=== PATIENT | female | born 1955 | race Caucasian/White ===

== ENCOUNTER → 2018-07-04 | Outpatient (CLI) | payer OTHER ==
[~2018-07-04] MED LIST: ASPI81CH PO; DULO60 PO; LISI20 PO; LISINOPRIL 40MG PO; METF500 PO; MULVITMINF PO; PIOG30 PO; TRAM50 PO; VITAMIN C PO
== END | disposition home or self-care (01) ==
LOC: LAB EV 15:43 → LAB SHORT 15:43
DX: N39.0 Urinary tract infection, site not specified (principal)
CPT/HCPCS: 87077; 87086; 87186

== ENCOUNTER → 2018-07-21 | Outpatient (CLI) | payer OTHER | LOC: LAB SHORT 07:15 → PLD 07:15 | DX: D18.00 Hemangioma unspecified site (principal) | CPT/HCPCS: 88305 ==

== ENCOUNTER 2019-07-19 16:55 | Emergency (ER) | payer BC ==
[~2019-07-19] VITALS: Ht 170.2 cm; Wt 131.1 kg
[~2019-07-19 16:55] MED LIST changes: -ASPI81CH PO; +Aspirin EC81 MG PO
[2019-07-19] MEDS ORDERED: DILTIAZEM 24HR120 M2 (17:13)
[2019-07-19] MEDS ORDERED: LISI20 PO (17:22)
[2019-07-19] MEDS ORDERED: Dilt-Xr120 MG PO (17:22)
[2019-07-19] MEDS ORDERED: Celexa40 MG PO (17:23)
[2019-07-19] MEDS ORDERED: Pravachol40 MG PO (17:23)
[2019-07-19] MEDS ORDERED: B-121000 MC4 PO (17:24)
[2019-07-19 17:58] LABS: BASOPHILS ABSOLUTE AUTO 0.04 K/mm3 (0.00-0.23); BASOPHILS PERCENT AUTO 1 % (0-2); EOSINOPHILS ABSOLUTE AUTO 0.03 K/mm3 (0.00-0.68); EOSINOPHILS PERCENT AUTO 1 % (0-6); Hematocrit 38.7 % (33.0-51.0); Hemoglobin 12.5 g/dL (11.5-16.0); IMMATURE GRAN ABSOLUTE AUTO 0.03 K/mm3 (0.00-0.10); IMMATURE GRAN PERCENT AUTO 1 % (0-1); LYMPHOCYTES ABSOLUTE AUTO 0.49 K/mm3 (0.84-5.20); LYMPHOCYTES PERCENT AUTO 8 % (21-46); MONOCYTES ABSOLUTE AUTO 0.87 K/mm3 (0.16-1.47); MONOCYTES PERCENT AUTO 15 % (4-13); Mean Corpuscular HGB 29.6 pg (26.0-34.0); Mean Corpuscular HGB Conc 32.3 g/dL (31.5-36.5); Mean Corpuscular Volume 92 fL (80-100); NEUTROPHILS ABSOLUTE AUTO 4.51 K/mm3 (1.96-9.15); NEUTROPHILS PERCENT AUTO 76 % (41-73); Platelet Count 171 K/mm3 (150-400); RDW Coefficient Variation 14.6 % (11.7-14.2); RDW Standard Deviation 49.2 fL (35.1-46.3); Red Blood Cell Count 4.22 M/mm3 (3.80-5.20); White Blood Cell Count 5.97 K/mm3 (4.00-11.30)
[2019-07-19 18:19] LABS: Alanine Aminotransfer (ALT/SGP 86 U/L (12-78); Albumin, Blood 3.5 g/dL (3.4-5.0); Albumin/Globulin Ratio 0.9 (0.8-1.8); Alk Phos 87 U/L (50-136); Anion Gap 6 mmol/L (6-16); Aspartate Aminotrans (AST/SGOT 139 U/L (12-37); Bilirubin, Total 0.5 mg/dL (0.1-1.0); Blood Urea Nitrogen 13 mg/dL (8-24); Bun/Creatinine Ratio 25.3 (12.0-20.0); CO2, Blood 24 mmol/L (21-32); Chloride, Blood 105 mmol/L (98-108); Creatinine, Blood 0.51 mg/dL (0.40-1.00); Glomerular Filtration Rate >60 (60-); Glucose, Blood 151 mg/dL (70-99); Potassium, Blood 3.5 mmol/L (3.5-5.5); Sodium, Blood 135 mmol/L (136-145); Total Protein, Blood 7.5 g/dL (6.4-8.2); Troponin I <0.015 ng/mL (0.000-0.040)
[2019-07-19 18:24] LABS: Influenza A Positive (NEGATIVE); Influenza B Negative (NEGATIVE)
[2019-07-19] MEDS ORDERED: Tamiflu75 MG PO (18:39)
[2019-07-21] MEDS ORDERED: Prednisone20 MG PO (15:41)
[2019-07-21] MEDS ORDERED: GUAIFEN-CODEINE10 ML PO (15:41)
[2019-07-21] MEDS ORDERED: Zithromax250 MG PO (15:41)
== END 2019-07-19 18:51 | disposition home or self-care (01) ==
LOC: ER 16:55
PROVIDERS: Emergency Medicine; Physician Assistant
DX: J10.1 Influenza due to other identified influenza virus with other respiratory manifestations (principal); E11.9 Type 2 diabetes mellitus without complications; I10 Essential (primary) hypertension; E78.5 Hyperlipidemia, unspecified; Z79.899 Other long term (current) drug therapy; Z79.82 Long term (current) use of aspirin; Z79.84 Long term (current) use of oral hypoglycemic drugs
CPT/HCPCS: 71046; 80053; 84484; 85025; 87804; 93005; 93010; 99285-25

== ENCOUNTER 2021-01-25 18:01 | Emergency (ER) | payer OTHER, BC, MEDICARE ==
[~2021-01-25] VITALS: Ht 170.2 cm; Wt 126.5 kg
[~2021-01-25 18:01] MED LIST changes: +B-121000 MC4 PO; +Celexa40 MG PO; +DILTIAZEM 24HR120 M2; +Dilt-Xr120 MG PO; +GUAIFEN-CODEINE10 ML PO; +Pravachol40 MG PO; +Prednisone20 MG PO; +Tamiflu75 MG PO; +Zithromax250 MG PO
== END 2021-01-25 23:30 | disposition home or self-care (01) ==
LOC: ER 18:01
DX: S42.342A Displaced spiral fracture of shaft of humerus, left arm, initial encounter for closed fracture (principal); S51.811A Laceration without foreign body of right forearm, initial encounter; J45.909 Unspecified asthma, uncomplicated; E11.9 Type 2 diabetes mellitus without complications; I10 Essential (primary) hypertension; E78.5 Hyperlipidemia, unspecified; Z79.899 Other long term (current) drug therapy; Z79.82 Long term (current) use of aspirin; Z79.84 Long term (current) use of oral hypoglycemic drugs; W01.0XXA Fall on same level from slipping, tripping and stumbling without subsequent striking against object, initial encounter; Y99.0 Civilian activity done for income or pay
CPT/HCPCS: 12002; 73030; 73060; 96372-59; 99283-25; A9270; J1885

== ENCOUNTER → 2021-03-11 | Outpatient (CLI) | payer OTHER, BC, MEDICARE ==
[2021-03-11 12:25] LABS: BASOPHILS ABSOLUTE AUTO 0.03 K/mm3 (0.00-0.23); BASOPHILS PERCENT AUTO 1 % (0-2); EOSINOPHILS PERCENT AUTO 2 % (0-6); Hematocrit 34.4 % (33.0-51.0); IMMATURE GRAN ABSOLUTE AUTO 0.01 K/mm3 (0.00-0.10); IMMATURE GRAN PERCENT AUTO 0 % (0-1); LYMPHOCYTES ABSOLUTE AUTO 1.08 K/mm3 (0.84-5.20); LYMPHOCYTES PERCENT AUTO 23 % (21-46); MONOCYTES ABSOLUTE AUTO 0.79 K/mm3 (0.16-1.47); MONOCYTES PERCENT AUTO 17 % (4-13); Mean Corpuscular HGB 29.6 pg (26.0-34.0); Mean Corpuscular Volume 93 fL (80-100); Mean Platelet Volume 9.3 fL (9.1-12.4); NEUTROPHILS ABSOLUTE AUTO 2.64 K/mm3 (1.96-9.15); NEUTROPHILS PERCENT AUTO 57 % (41-73); Platelet Count 204 K/mm3 (150-400); RDW Standard Deviation 51.2 fL (35.1-46.3); Red Blood Cell Count 3.72 M/mm3 (3.80-5.20); White Blood Cell Count 4.65 K/mm3 (4.00-11.30)
[2021-03-11 12:40] LABS: Alanine Aminotransfer (ALT/SGP 40 U/L (12-78); Albumin, Blood 3.6 g/dL (3.4-5.0); Alk Phos 103 U/L (40-126); Anion Gap 9 mmol/L (6-16); Aspartate Aminotrans (AST/SGOT 39 U/L (12-37); Bilirubin, Total 0.4 mg/dL (0.1-1.0); Blood Urea Nitrogen 12 mg/dL (8-24); Bun/Creatinine Ratio 17.9 (12.0-20.0); CO2, Blood 28 mmol/L (21-32); Calcium, Blood 8.9 mg/dL (8.5-10.1); Chloride, Blood 102 mmol/L (98-108); Creatinine, Blood 0.67 mg/dL (0.40-1.00); Globulin, Blood 3.5 g/dL (2.2-4.0); Glomerular Filtration Rate >60 (60-); Glucose, Blood 113 mg/dL (70-99); Potassium, Blood 3.8 mmol/L (3.5-5.5); Sodium, Blood 139 mmol/L (136-145); Total Protein, Blood 7.1 g/dL (6.4-8.2)
== END | disposition home or self-care (01) ==
LOC: LAB SHORT 12:21
PROVIDERS: Family Medicine
DX: U07.1 COVID-19 (principal)
CPT/HCPCS: 80053; 85025; 85379; 86140

== ENCOUNTER 2022-06-03 11:54 | Day surgery (SDC) | payer BC, MEDICARE ==
[~2022-06-03] VITALS: Ht 170.2 cm; Wt 132.7 kg
[2022-06-03] MEDS ORDERED: OZEMPIC0.25 MG/0. (12:17)
[2022-06-03] MEDS ORDERED: TRAM50 (12:17)
[2022-06-03] MEDS ORDERED: Glipizide Xl2.5 MG (12:17)
[2022-06-03] MEDS ORDERED: PIOG15 (12:17)
[2022-06-03] MEDS ORDERED: Lisinopril2.5 MG (12:18)
[2022-06-03] MEDS ORDERED: FLUT1DIS5 (12:18)
== END 2022-06-03 14:43 | disposition home or self-care (01) ==
LOC: ORSCSDS 11:54
PROVIDERS: Internal Medicine Gastroenterology
PROC: 0DBE8ZX Excision of Large Intestine, Via Natural or Artificial Opening Endoscopic, Diagnostic (ICD-10-PCS; principal; 2022-06-03 13:00)
PROC: 0DB68ZX Excision of Stomach, Via Natural or Artificial Opening Endoscopic, Diagnostic (ICD-10-PCS; principal; 2022-06-03 13:00)
DX: R19.4 Change in bowel habit (principal); R11.2 Nausea with vomiting, unspecified; R10.84 Generalized abdominal pain; R11.0 Nausea; F41.9 Anxiety disorder, unspecified; J45.909 Unspecified asthma, uncomplicated; E11.9 Type 2 diabetes mellitus without complications; I10 Essential (primary) hypertension; G47.33 Obstructive sleep apnea (adult) (pediatric); E78.00 Pure hypercholesterolemia, unspecified; E55.9 Vitamin D deficiency, unspecified; K29.70 Gastritis, unspecified, without bleeding; R19.5 Other fecal abnormalities; E66.9 Obesity, unspecified; Z68.42 Body mass index [BMI] 45.0-49.9, adult; Z79.899 Other long term (current) drug therapy
CPT/HCPCS: 82947; 88305; 88342; A9270; J2704; J7120

== ENCOUNTER 2022-07-29 12:41 | Day surgery (SDC) | payer BC, MEDICARE ==
[~2022-07-29] VITALS: Ht 170.2 cm; Wt 128.2 kg
[~2022-07-29 12:41] MED LIST changes: +FLUT1DIS5; +Glipizide Xl2.5 MG; +Lisinopril2.5 MG; +OZEMPIC0.25 MG/0.; +PIOG15; +TRAM50
[2022-07-29] MEDS ORDERED: Ventolin5 MG/1 ML (12:59)
[2022-07-29] MEDS ORDERED: ACYC200 (12:59)
[2022-07-29] MEDS ORDERED: BENZ100A (13:00)
[2022-07-29] MEDS ORDERED: TRAM50 (13:00)
[2022-07-29] MEDS ORDERED: Methocarbamol750 MG (13:01)
[2022-07-29] MEDS ORDERED: Ativan1 MG (13:01)
[2022-07-29] MEDS ORDERED: OZEMPIC0.25 MG/0. (13:03)
[2022-07-29] MEDS ORDERED: CELEXA40 M1 (13:03)
== END 2022-07-29 15:14 | disposition home or self-care (01) ==
LOC: ORSCSDS 12:41
PROVIDERS: Internal Medicine Gastroenterology
PROC: 0DB68ZX Excision of Stomach, Via Natural or Artificial Opening Endoscopic, Diagnostic (ICD-10-PCS; principal; 2022-07-29 14:00)
DX: K25.3 Acute gastric ulcer without hemorrhage or perforation (principal); R10.9 Unspecified abdominal pain; R11.0 Nausea; K29.70 Gastritis, unspecified, without bleeding; E11.9 Type 2 diabetes mellitus without complications; I10 Essential (primary) hypertension; G47.33 Obstructive sleep apnea (adult) (pediatric); G47.30 Sleep apnea, unspecified; Z79.85 Long-term (current) use of injectable non-insulin antidiabetic drugs; Z79.82 Long term (current) use of aspirin; Z79.899 Other long term (current) drug therapy
CPT/HCPCS: 82947; 88305; 88342; J0330; J0461; J2001; J2405; J2704; J7120; Q9968

== ENCOUNTER 2023-06-28 07:43 | Day surgery (SDC) | payer BC, MEDICARE ==
[~2023-06-28 07:43] MED LIST changes: +ACYC200; +Ativan1 MG; +BENZ100A; +CELEXA40 M1; +Methocarbamol750 MG; +Ventolin5 MG/1 ML
== END 2023-06-28 23:02 | disposition home or self-care (01) ==
LOC: CT 07:43
DX: R07.9 Chest pain, unspecified (principal); R06.09 Other forms of dyspnea; I10 Essential (primary) hypertension; E78.5 Hyperlipidemia, unspecified; E11.9 Type 2 diabetes mellitus without complications
CPT/HCPCS: 75571

== ENCOUNTER 2023-07-16 06:00 | Day surgery (SDC) | payer BC, MEDICARE ==
[~2023-07-16] VITALS: Ht 170.2 cm; Wt 128.0 kg
[~2023-07-16 06:00] MED LIST changes: +HYDCHL25 PO; +NITR.4SL SL; +ROSU5 PO; +Robaxin750 MG
[2023-07-16] MEDS ORDERED: Nitroglycerin 2 MG/20 ML BTL ONE (06:37)
[2023-07-16] MEDS ORDERED: NS 1,000 ML IV ONE ×2 (06:37→07:14)
[2023-07-16] MEDS ORDERED: Verapamil HCL 2.5 MG/ML 2ML Injection ONE (06:37)
[2023-07-16] MEDS ORDERED: Heparin Sodium 1000 Units/ML 10ML MDV ONE ×2 (06:37→07:14)
[2023-07-16] MEDS ORDERED: NS 250 ML IV ONE (06:37)
[2023-07-16] MEDS ORDERED: Midazolam HCl 1MG / ML 2ML Vial ONE (07:13)
[2023-07-16] MEDS ORDERED: FentaNYL Citrate 50 MCG/ML 2 ML Injection ONE (07:13)
--- NOTE | 2023-07-16 08:06 | NUR ---
PT BACK TO RECOVERY ROOM VIA RECLINER AFTER PROCEDURE. AWAKE AND ALERT, DENIES ANY PAIN OR DISCOMFORT. VSS, CALL LIGHT IN REACH. BREAKFAST TRAY AND WATER GIVEN PER PATIENT REQUEST. FAMILY VISITING WITH PATIENT.
[2023-07-16 08:15] VITALS: BP 134/83
[2023-07-16 08:30] VITALS: BP 92/59
[2023-07-16 08:45] VITALS: BP 125/67
--- NOTE | 2023-07-16 08:58 | NUR ---
APPROX 3CC'S AIR HAVE BEEN REMOVED FROM RIGHT TR BAND. NO BLEEDING OR SWELLING AT SITE, PT DENIES ANY PAIN OR DISCOMFORT. VSS, CALL LIGHT IN REACH. FAMILY REMAINS WITH PATIENT.
[2023-07-16 09:00] VITALS: BP 120/65
[2023-07-16] MEDS ORDERED: JARDIANCE10 MG PO (09:02)
[2023-07-16] MEDS ORDERED: Isosorbide Mono30 MG PO (09:02)
[2023-07-16 09:30] VITALS: BP 109/60
--- NOTE | 2023-07-16 09:30 | NUR ---
RIGHT TR BAND HAS BEEN FULLY DEFLATED, NO BLEEDING OR SWELLING NOTED AT SITE. VSS, CALL LIGHT IN REACH
[2023-07-16 10:00] VITALS: BP 129/75
--- NOTE | 2023-07-16 10:20 | NUR ---
IV DC'D, CATH INTACT. PT GIVEN DC INSTRUCTIONS AND COPIES OF NEW PRESCRIPTIONS AND LAB ORDERS, VERBALIZED UNDERSTANDING. RIGHT RADIAL TR BAND REMOVED, CLOTH DOT DRESSING AND SPLINT IN PLACE ON RIGHT WRIST. PT OUT TO CAR VIA WHEELCHAIR.
== END 2023-07-16 10:20 | disposition home or self-care (01) ==
LOC: MHTC 06:00
DX: R07.9 Chest pain, unspecified (principal); R06.09 Other forms of dyspnea; R93.1 Abnormal findings on diagnostic imaging of heart and coronary circulation; R00.2 Palpitations; I34.0 Nonrheumatic mitral (valve) insufficiency; I10 Essential (primary) hypertension; E78.5 Hyperlipidemia, unspecified; E11.9 Type 2 diabetes mellitus without complications; Z82.49 Family history of ischemic heart disease and other diseases of the circulatory system; F41.9 Anxiety disorder, unspecified; I27.20 Pulmonary hypertension, unspecified; Z86.16 Personal history of COVID-19
CPT/HCPCS: 76937; 93458; 99152; 99153; C1769; C1894; J1644; J2250; J3010; J7030; J7050; Q9967

== ENCOUNTER 2024-06-06 06:32 | Day surgery (SDC) | payer BC, MEDICARE ==
[~2024-06-06] VITALS: Ht 170.2 cm; Wt 120.0 kg
[2024-06-06] VITALS (14 sets, daily range): BP systolic 112–144; BP diastolic 59–90
[~2024-06-06 06:32] MED LIST changes: -ACYC200; +ACYC200 PO; +Acetaminophen 500 MG Tab PO SCH; +CeFAZolin Sodium 3,000 MG in NS 100 ML IV SCH; +Chlorhexidine Mouth Care 15 ML UDC MT SCH; +Crestor40 MG PO; +DILT120 PO; -Dilt-Xr120 MG PO; +Isosorbide Mono30 MG PO; +JARDIANCE10 MG PO; +Lactated Ringer's 1,000 ML IV SCH; +OZEMPIC0.25 MG/02 SC; +OxyCODONE HCL 10 MG TABCR PO SCH; +Ropivacaine 0.5% HCl/Pf 123.125 MG,EPINEPHrine HCL 0.25 MG,Ketorolac Tromethamine 15 MG... INFIL SCH; +Tranexamic Acid 100 ML IV SCH
[2024-06-06] MEDS ORDERED: IBUP600 PO (07:02)
[2024-06-06] MEDS ORDERED: Midazolam HCl 1MG / ML 2ML Vial ONE (07:32)
[2024-06-06] MEDS ORDERED: Ondansetron HCl 2 MG / ML 2ML Vial IV ONE (07:40)
[2024-06-06] MEDS ORDERED: Midazolam HCl 1MG / ML 2ML Vial IV ONE (07:50)
--- NOTE | 2024-06-06 08:06 | NUR ---
History, Chart, Medications and Allergies reviewed before start of procedure. Pre-Op teaching done. Pt verbalizes understanding. Ambulatory in Day Surgery WITH STEADY GAIT. BELONGINGS PLACED UNDER GURN. DAUGHTER HAS PT'S GLASSES. FAMILY AT BEDSIDE.
[2024-06-06] MEDS ORDERED: Phenylephrine HCl 100 MCG/ML-NS 10MLSYR (1MG/10ML) ONE (09:07)
[2024-06-06] MEDS ORDERED: Dexamethasone Sod Phos 10 MG/ML 1ML VIAL ONE (09:21)
[2024-06-06] MEDS ORDERED: Ondansetron HCl 2 MG / ML 2ML Vial ONE (09:21)
[2024-06-06] MEDS ORDERED: HYDROmorphone HCl/Pf 1MG SYR ONE (09:22)
[2024-06-06] MEDS ORDERED: Ketamine HCl 100 MG / ML 5ML Vial ONE (09:27)
[2024-06-06] MEDS ORDERED: Acyclovir 200 MG Cap PO PRN (09:35)
[2024-06-06] MEDS ORDERED: ePHEDrine Sulfate 50 MG/ML 1ML Injection ONE (09:36)
[2024-06-06] MEDS ORDERED: DiphenhydrAMINE HCL 25 MG Cap PO PRN (09:40)
[2024-06-06] MEDS ORDERED: Bisacodyl 10 MG Supp PR PRN (09:40)
[2024-06-06] MEDS ORDERED: HYDROmorphone HCl/Pf 1MG SYR IV PRN (09:40)
[2024-06-06] MEDS ORDERED: FLU VACC TS2024-25(6MOS UP)/PF 45 MCG/0.5 ML SYRINGE IM SCH (09:40)
[2024-06-06] MEDS ORDERED: Promethazine HCl 25 MG Tab PO PRN (09:45)
[2024-06-06] MEDS ORDERED: Metoclopramide HCl 5MG / ML 2ML Vial IV PRN (09:45)
[2024-06-06] MEDS ORDERED: OxyCODONE HCL 5 MG TAB PO PRN ×2 (09:45)
[2024-06-06] MEDS ORDERED: Ondansetron HCl 2 MG / ML 2ML Vial IV PRN (09:45)
[2024-06-06] MEDS ORDERED: Lactated Ringer's 1,000 ML IV SCH (09:50)
[2024-06-06] MEDS ORDERED: Magnesium Hydroxide Conc 10 ML UDC PO PRN (09:50)
[2024-06-06] MEDS ORDERED: Methocarbamol 500 MG Tab PO PRN (10:05)
[2024-06-06] MEDS ORDERED: Sugammadex Sodium 200 MG/2ML SDV (100 MG/ML) ONE (10:43)
[2024-06-06] MEDS ORDERED: Metoclopramide HCl 5MG / ML 2ML Vial ONE (11:12)
[2024-06-06] MEDS ORDERED: Insulin Regular 100 UNIT/ML 10ML Vial SC SCH (11:30)
[2024-06-06] MEDS ORDERED: Ketorolac Tromethamine 15mg Vial IV SCH (12:00)
--- NOTE | 2024-06-06 12:22 | NUR ---
Pt. is awake in her room, but still unsettled from the discomfort from her knee procedure. Pt. displayed evidence of needing rest, so we agreed to have this pole peeler return in the afternoon.
--- NOTE | 2024-06-06 14:30 | NUR ---
REDDENED AREA PT COMPLAINED OF INCREASED PAIN/BURING TO HER RIGHT THIGH AREA. AMINATA WRAP WAS TIGHTLY WRAPPED AND STARTED TO BUNCH UP ON HER MEDIAL THIGH AREA. AMINATA WRAP LOOSENED. SKIN RED, SKIN BLANCES. PT REPORTS IMPROVED PAIN MANAGMENT AFTER AMINATA WRAP WAS LOOSENED.
[2024-06-06] MEDS ORDERED: Acetaminophen 500 MG Tab PO SCH (16:00)
--- NOTE | 2024-06-06 16:14 | NUR ---
PT ARRIVED FROM PACU TO ROOM 222 AT 1145. PT DENIED PAIN UPON ARRIVAL. SPINAL SITE WNL. PT EDUCATED TO USE THE CALL LIGHT AND IT WAS PLACED WITHIN REACH. PT DROWSY BUT AWAKE AND ORIENTED UPON ARRIVAL. R KNEE INCISION SITE WNL.
[2024-06-06] MEDS ORDERED: CeFAZolin Sodium 3,000 MG in NS 100 ML IV SCH (17:00)
[2024-06-06] MEDS ORDERED: Isosorbide Mononitrate 30 MG TABCR PO SCH (18:00)
[2024-06-06] MEDS ORDERED: Lisinopril 20 MG Tab PO SCH (18:00)
--- NOTE | 2024-06-06 20:03 | NUR ---
SHIFT SUMMARY PT IS POD#0 FROM R TKA WITH DR. MONT[place]UE. PAIN MANAGED WITH PO PAIN MEDICATION. PT HAS BEEN ABLE TO TOLERATE PO. SHE HAS VOIDED. PT WILL NEED AN ADDITIONAL SESSION OF PHYSICAL THERAPY TOMORROW BEFORE GOING HOME. BEDSIDE REPORT GIVEN TO CRIS URBINA.
[2024-06-06] MEDS ORDERED: dilTIAZem HCL 120 MG CAP.CD PO SCH (21:00)
[2024-06-06] MEDS ORDERED: Docusate Sodium 100 MG Cap PO SCH (21:00)
[2024-06-07 01:04] VITALS: BP 138/73
--- NOTE | 2024-06-07 04:59 | NUR ---
SHIFT SUMMARY POD 1 RIGHT TKA, DRESSING CDI. VSS. A/OX4. PLEASANT AND COOPERATIVE WITH CARE. PAIN MANAGED WITH [facility], PER EMAR AND REPOSITIONING. KHUSHBU PO INTAKE. AMBULATING WITH GB, FWW, AND SBA. IS VOIDING. USING CPAP BASELINE WHILE SLEEPING. PLAN TO WORK WITH THERAPY AND DC HOME.
[2024-06-07 05:35] LABS: BASOPHILS ABSOLUTE AUTO 0.01 K/mm3 (0.00-0.23); BASOPHILS PERCENT AUTO 0 % (0-2); EOSINOPHILS PERCENT AUTO 0 % (0-6); Hematocrit 34.8 % (33.0-51.0); Hemoglobin 11.2 g/dL (11.5-16.0); IMMATURE GRAN ABSOLUTE AUTO 0.09 K/mm3 (0.00-0.10); IMMATURE GRAN PERCENT AUTO 1 % (0-1); LYMPHOCYTES ABSOLUTE AUTO 0.87 K/mm3 (0.84-5.20); LYMPHOCYTES PERCENT AUTO 6 % (21-46); MONOCYTES ABSOLUTE AUTO 1.27 K/mm3 (0.16-1.47); MONOCYTES PERCENT AUTO 8 % (4-13); Mean Corpuscular HGB 30.8 pg (26.0-34.0); Mean Corpuscular HGB Conc 32.2 g/dL (31.5-36.5); Mean Corpuscular Volume 96 fL (80-100); Mean Platelet Volume 10.2 fL (9.1-12.4); NEUTROPHILS PERCENT AUTO 86 % (41-73); Platelet Count 186 K/mm3 (150-400); RDW Coefficient Variation 14.1 % (11.7-14.2); RDW Standard Deviation 49.7 fL (35.1-46.3); Red Blood Cell Count 3.64 M/mm3 (3.80-5.20); White Blood Cell Count 15.74 K/mm3 (4.00-11.30)
[2024-06-07 06:02] VITALS: BP 116/65
[2024-06-07 06:10] LABS: Bun/Creatinine Ratio 24.3 (12.0-20.0); Calcium, Blood 8.6 mg/dL (8.5-10.1); Creatinine, Blood 0.74 mg/dL (0.40-1.00); Potassium, Blood 4.5 mmol/L (3.5-5.5)
[2024-06-07 07:17] VITALS: BP 102/53
[2024-06-07] MEDS ORDERED: ASPI81CH PO (07:22)
[2024-06-07] MEDS ORDERED: Aspirin 81 MG Chew PO SCH (09:00)
[2024-06-07] MEDS ORDERED: Empagliflozin 10 MG TAB PO SCH (09:00)
[2024-06-07] MEDS ORDERED: Rosuvastatin Calcium 10 MG Tab PO SCH (09:00)
[2024-06-07] MEDS ORDERED: GlipiZIDE 5 MG TabCR PO SCH (09:00)
--- NOTE | 2024-06-07 11:01 | NUR ---
SHIFT SUMMARY POD 1 RTKA PT AMBULATED WELL WITH THERAPY. PAIN CONTROLLED PER EMAR. TOLERATIING DIET. ALL INSTRUCTIONS GONE OVER WITH PATIENT. ESCORTED OUT VIA WEELCHAIR.
[2024-06-07] MEDS ORDERED: OZEMPIC 2 MG/3 ML SC SCH (12:00)
== END 2024-06-07 10:45 | disposition home or self-care (01) ==
LOC: ORSCMMR 06:32 → ORD 08:15 → ORSCMMR 08:15 → SURS 11:23 → ORSCMMR 06-07 10:45
PROVIDERS: Orthopaedic Surgery
PROC: 0SRD0JA Replacement of Left Knee Joint with Synthetic Substitute, Uncemented, Open Approach (ICD-10-PCS; principal; 2024-06-06 08:15)
DX: M17.11 Unilateral primary osteoarthritis, right knee (principal); E11.9 Type 2 diabetes mellitus without complications; I10 Essential (primary) hypertension; G47.33 Obstructive sleep apnea (adult) (pediatric); I25.10 Atherosclerotic heart disease of native coronary artery without angina pectoris; F32.A Depression, unspecified; E66.01 Morbid (severe) obesity due to excess calories; Z68.41 Body mass index [BMI] 40.0-44.9, adult; Z79.85 Long-term (current) use of injectable non-insulin antidiabetic drugs; Z79.84 Long term (current) use of oral hypoglycemic drugs; Z79.899 Other long term (current) drug therapy
CPT/HCPCS: 36415; 73560-RT; 80048; 82947; 85025; 94762; 97110; 97116; 97162; A6010; A9270; C1713; C1776; J0171; J0690; J0735; J1100; J1171; J1815; J1885; J2250; J2371; J2405; J2765; J2795; J7120

== ENCOUNTER 2025-02-13 08:44 | Day surgery (SDC) | payer BC, MEDICARE ==
[~2025-02-13 08:44] MED LIST changes: +ASPI81CH PO; -Acetaminophen 500 MG Tab PO SCH; -CeFAZolin Sodium 3,000 MG in NS 100 ML IV SCH; -Chlorhexidine Mouth Care 15 ML UDC MT SCH; -Crestor40 MG PO; +IBUP600 PO; -JARDIANCE10 MG PO; +JARDIANCE25 MG PO; -Lactated Ringer's 1,000 ML IV SCH; -Lisinopril2.5 MG; -OxyCODONE HCL 10 MG TABCR PO SCH; +ROSUVASTATIN CA10 MG PO; -Ropivacaine 0.5% HCl/Pf 123.125 MG,EPINEPHrine HCL 0.25 MG,Ketorolac Tromethamine 15 MG... INFIL SCH; -Tranexamic Acid 100 ML IV SCH
[2025-02-13 13:16] LABS: BASOPHILS ABSOLUTE AUTO 0.04 K/mm3 (0.00-0.23); BASOPHILS PERCENT AUTO 1 % (0-2); EOSINOPHILS ABSOLUTE AUTO 0.12 K/mm3 (0.00-0.68); EOSINOPHILS PERCENT AUTO 2 % (0-6); Hematocrit 42.5 % (33.0-51.0); Hemoglobin 13.8 g/dL (11.5-16.0); IMMATURE GRAN ABSOLUTE AUTO 0.03 K/mm3 (0.00-0.10); IMMATURE GRAN PERCENT AUTO 0 % (0-1); LYMPHOCYTES ABSOLUTE AUTO 2.39 K/mm3 (0.84-5.20); LYMPHOCYTES PERCENT AUTO 30 % (21-46); MONOCYTES ABSOLUTE AUTO 0.62 K/mm3 (0.16-1.47); MONOCYTES PERCENT AUTO 8 % (4-13); Mean Corpuscular HGB Conc 32.5 g/dL (31.5-36.5); Mean Corpuscular Volume 94 fL (80-100); NEUTROPHILS ABSOLUTE AUTO 4.73 K/mm3 (1.96-9.15); NEUTROPHILS PERCENT AUTO 60 % (41-73); NRBC ABSOLUTE 0.00 K/mm3 (0.00-0.02); NRBC Auto 0.0 /100 WBC (0.0-0.2); Platelet Count 236 K/mm3 (150-400); RDW Coefficient Variation 14.2 % (11.7-14.2); RDW Standard Deviation 49.5 fL (35.1-46.3)
[2025-02-13 18:02] LABS: Anion Gap 10.0 mmol/L (3-11); Blood Urea Nitrogen 18.0 mg/dL (8-24); CO2, Blood 24.0 mmol/L (21-32); Calcium, Blood 9.6 mg/dL (8.5-10.1); Chloride, Blood 104.0 mmol/L (98-108); Creatinine, Blood 0.66 mg/dL (0.40-1.00); Glucose, Blood 96.0 mg/dL (70-99); Potassium, Blood 4.0 mmol/L (3.5-5.5); Sodium, Blood 134.0 mmol/L (136-145)
== END 2025-02-13 23:00 | disposition home or self-care (01) ==
LOC: PRE 08:44 → ORD 03-06 08:15
PROVIDERS: Orthopaedic Surgery
DX: Z01.812 Encounter for preprocedural laboratory examination (principal); E11.9 Type 2 diabetes mellitus without complications; M17.12 Unilateral primary osteoarthritis, left knee
CPT/HCPCS: 36415; 80048; 83036; 85025

== ENCOUNTER 2025-03-06 06:59 | Day surgery (SDC) | payer BC, MEDICARE ==
[~2025-03-06] VITALS: Ht 170.2 cm; Wt 111.1 kg
[2025-03-06] VITALS (12 sets, daily range): BP systolic 111–140; BP diastolic 62–83
[2025-03-06] MEDS ORDERED: NAPR220 (07:41)
[2025-03-06] MEDS ORDERED: CeFAZolin Sodium 2,000 MG in NS 100 ML IV SCH ×2 (08:10→16:45)
[2025-03-06] MEDS ORDERED: Midazolam HCl 1MG / ML 2ML Vial IV ONE (08:10)
[2025-03-06] MEDS ORDERED: Tranexamic Acid 100 ML IV SCH (08:10)
[2025-03-06] MEDS ORDERED: Ropivacaine 0.5% HCl/Pf 123.125 MG,EPINEPHrine HCL 0.25 MG,Ketorolac Tromethamine 15 MG... INFIL SCH (08:10)
[2025-03-06] MEDS ORDERED: Chlorhexidine Mouth Care 15 ML UDC MT SCH (08:10)
--- NOTE | 2025-03-06 08:34 | NUR ---
Ambulatory in Day SurgeryPre-Op teaching done. Pt verbalizes understanding. History, Chart, Medications and Allergies reviewed before start of procedure.Patient confirms NPO status and agrees with scheduled surgery. Patient reports completing Chlorhexadine shower X2 prior to admission to hospital.
[2025-03-06] MEDS ORDERED: Phenylephrine HCl 10mg/ml 1 ml Vial ONE (08:40)
[2025-03-06] MEDS ORDERED: Dexamethasone Sod Phos 10 MG/ML 1ML VIAL ONE (08:45)
[2025-03-06] MEDS ORDERED: Ondansetron HCl 2 MG / ML 2ML Vial ONE (08:45)
[2025-03-06] MEDS ORDERED: Magnesium Hydroxide Conc 10 ML UDC PO PRN (09:20)
[2025-03-06] MEDS ORDERED: Metoclopramide HCl 5MG / ML 2ML Vial IV PRN (09:20)
[2025-03-06] MEDS ORDERED: Ondansetron HCl 2 MG / ML 2ML Vial IV PRN ×2 (09:20→10:45)
[2025-03-06] MEDS ORDERED: HYDROmorphone HCl/Pf 1MG SYR IV PRN ×3 (09:25→10:45)
[2025-03-06] MEDS ORDERED: FLU VACC TS2025(65UP)/MF59C/PF 45 MCG/0.5 ML SYRINGE IM SCH (09:45)
[2025-03-06] MEDS ORDERED: Ketorolac Tromethamine 30mg Vial ONE (09:55)
[2025-03-06] MEDS ORDERED: FentaNYL Citrate 50 MCG/ML 2 ML Injection IV PRN ×2 (10:40→10:45)
[2025-03-06] MEDS ORDERED: Albuterol 2.5 MG/3 ML VIAL INH PRN (10:45)
--- NOTE | 2025-03-06 11:45 | NUR ---
Pt. is awake inbed and welcomes my visit. Grand daughter and grand URBAN are at bedside. 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 Pt. verbalized encouraging news, but also exppected to stay at the hospital overnight. Listen with interst and empathy. Pt. displayed evidence of having been encouraged. Prayed with the Pt. and the Pt. verbalized gratitude for the spiritual care visit.
[2025-03-06] MEDS ORDERED: Ketorolac Tromethamine 15mg Vial IV SCH (12:00)
--- NOTE | 2025-03-06 13:07 | NUR ---
POST OP: REPORT RECEIVED FROM LEIGHA, MUSIC ENGRAVER. PT TO UNIT AT 1050, A/O, VSS. SURGICAL SITE WNL. SENSATION DECREASED STARTING AT L1, SPINAL SITE WNL. PT HAS NO PAIN OR NAUSEA AT THIS TIME. CALL LIGHT IN REACH
[2025-03-06] MEDS ORDERED: Isosorbide Mononitrate 30 MG TABCR PO SCH (18:00)
--- NOTE | 2025-03-06 19:27 | NUR ---
SUMMARY: PT DOING WELL POST OP. VSS, SURGICAL SITE WNL. PT DID WELL WITH THERAPY, PAIN MANAGED,PT USES CALL LIGHT . NO CONCERNS.
[2025-03-07 00:17] VITALS: BP 137/74
[2025-03-07 03:51] LABS: BASOPHILS ABSOLUTE AUTO 0.02 K/mm3 (0.00-0.23); BASOPHILS PERCENT AUTO 0 % (0-2); EOSINOPHILS ABSOLUTE AUTO 0.00 K/mm3 (0.00-0.68); EOSINOPHILS PERCENT AUTO 0 % (0-6); Hematocrit 34.3 % (33.0-51.0); Hemoglobin 11.1 g/dL (11.5-16.0); IMMATURE GRAN ABSOLUTE AUTO 0.05 K/mm3 (0.00-0.10); IMMATURE GRAN PERCENT AUTO 0 % (0-1); LYMPHOCYTES ABSOLUTE AUTO 0.81 K/mm3 (0.84-5.20); LYMPHOCYTES PERCENT AUTO 6 % (21-46); MONOCYTES ABSOLUTE AUTO 1.29 K/mm3 (0.16-1.47); MONOCYTES PERCENT AUTO 10 % (4-13); Mean Corpuscular HGB Conc 32.4 g/dL (31.5-36.5); Mean Corpuscular Volume 95 fL (80-100); NEUTROPHILS ABSOLUTE AUTO 11.29 K/mm3 (1.96-9.15); NEUTROPHILS PERCENT AUTO 84 % (41-73); NRBC ABSOLUTE 0.00 K/mm3 (0.00-0.02); NRBC Auto 0.0 /100 WBC (0.0-0.2); Platelet Count 178 K/mm3 (150-400); RDW Coefficient Variation 14.2 % (11.7-14.2); RDW Standard Deviation 49.8 fL (35.1-46.3)
[2025-03-07 04:11] LABS: Anion Gap 8.0 mmol/L (3-11); Blood Urea Nitrogen 25.0 mg/dL (8-24); CO2, Blood 28.0 mmol/L (21-32); Calcium, Blood 8.9 mg/dL (8.5-10.1); Chloride, Blood 103.0 mmol/L (98-108); Creatinine, Blood 0.73 mg/dL (0.40-1.00); Glucose, Blood 171.0 mg/dL (70-99); Potassium, Blood 4.5 mmol/L (3.5-5.5); Sodium, Blood 134.0 mmol/L (136-145)
[2025-03-07 05:00] VITALS: BP 132/69
--- NOTE | 2025-03-07 05:15 | NUR ---
SHIFT SUMMARY PT S/P LEFT TKA, PT HAS RESTED T/O THE NIGHT. HAS BEEN UP AND AMBULATING, VOIDING. TOLERATING PO INTAKE. PAIN MANAGED PER EMAR. POST OP VITALS STABLE. SURGICAL SITE WNL. PLAN IS FOR DC TODAY. BED IN LOWEST POSITION, CALL LIGHT WITHIN REACH.
[2025-03-07 07:18] VITALS: BP 126/63
[2025-03-07] MEDS ORDERED: ASPI81CH PO (08:33)
--- NOTE | 2025-03-07 10:04 | NUR ---
DC INSTRUCT REVIEWED. STATED UNDERSTANDING. DISCHARGED VIA W/C TO POV WITH PRINTED INSTRUCT ACCOMPANIED BY MANAGER DIVISION
[2025-03-07] MEDS ORDERED: OZEMPIC 0.25 MG SC SCH (12:00)
== END 2025-03-07 10:10 | disposition home or self-care (01) ==
LOC: ORSCMMR 06:59 → SURS 10:55 → ORSCMMR 03-07 10:10
PROVIDERS: Orthopaedic Surgery
PROC: 0SRD0JA Replacement of Left Knee Joint with Synthetic Substitute, Uncemented, Open Approach (ICD-10-PCS; principal; 2025-03-06 08:00)
DX: M17.12 Unilateral primary osteoarthritis, left knee (principal); E66.01 Morbid (severe) obesity due to excess calories; Z68.38 Body mass index [BMI] 38.0-38.9, adult; I10 Essential (primary) hypertension; E11.9 Type 2 diabetes mellitus without complications; K21.9 Gastro-esophageal reflux disease without esophagitis; I25.10 Atherosclerotic heart disease of native coronary artery without angina pectoris; F32.A Depression, unspecified; Z79.84 Long term (current) use of oral hypoglycemic drugs; Z79.85 Long-term (current) use of injectable non-insulin antidiabetic drugs; Z79.899 Other long term (current) drug therapy
CPT/HCPCS: 36415; 73560-LT; 80048; 82947; 85025; 94762; 97110; 97116; 97162; 97530; A9270; C1713; C1776; J0166; J0690; J0735; J1100; J1171; J1885; J2250; J2371; J2405; J2704; J2795; J7120